=== PATIENT | male | born 1970 | race Caucasian/White ===

== ENCOUNTER 2017-04-05 16:04 | Emergency (ER) | payer OTHER ==
[2017-04-05 16:14] VITALS: BP 170/92
[2017-04-05] MEDS ORDERED: Tetan/Diph/Pertus SYR(Tdap)* 0.5 ML SYR(BOOSTRIX) use SYR IM ONE (16:20)
[2017-04-05] MEDS ORDERED: Lidocaine 2% PF * 5 ML VIAL INJ ONE (16:37)
--- NOTE | 2017-04-05 17:15 | UC ---
Laceration HPI - HPI Summary HPI Summary: Pt presents with laceration to left index finger pad. Earlier today he was using a punch box tender and the cutter fell apart and he sustained a 1cm linear laceration to the pad of his left index finger. He bandaged the wound and came to . Last tetanus was 5+ years ago. Denies hx of clotting or wound healing difficulties. Denies numbness, tingling, or decreased ROM. - History Of Current Complaint Chief Complaint: UCLaceration Stated Complaint: FINGER LAC Time Seen by Provider: 04/05/17 16:31 Hx Obtained From: Patient Laceration Location: Finger Mechanism Of Injury: Sharp Trauma Onset/Duration: Sudden Onset Severity: Mild Pain Intensity: 3 Pain Scale Used: 0-10 Numeric - Allergies/Home Medications Allergies/Adverse Reactions: Allergies Allergy/AdvReac Type Severity Reaction Status Date / Time No Known Allergies Allergy Verified 04/05/17 16:13 Home Medications: Home Medications Lisinopril [Lisinopril 2.5 MG-] 2.5 mg PO DAILY 04/05/17 [History Confirmed ] PMH/Surg Hx/FS Hx/Imm Hx Previously Healthy: Yes Cardiovascular History: Hypertension - Surgical History Surgical History: None - Social History Occupation: Employed Full-time Lives: With Family Alcohol Use: Occasionally Substance Use Type: None Smoking Status (MU): Never Smoked Tobacco Review of Systems Constitutional: Negative Skin: Other - Laceration to left index finger pad Respiratory: Negative Cardiovascular: Negative Gastrointestinal: Negative All Other Systems Reviewed And Are Negative: Yes Physical Exam Triage Information Reviewed: Yes Appearance: Well-Appearing, Well-Nourished Vital Signs: Initial Vital Signs Temp 98.4 F 04/05/17 16:10 Pulse 111 04/05/17 16:10 Resp 20 04/05/17 16:10 BP 170/92 04/05/17 16:10 Pulse Ox 100 04/05/17 16:10 Vital Signs Reviewed: Yes Respiratory: Positive: Chest non-tender, Lungs clear, Normal breath sounds Cardiovascular: Positive: RRR, No Murmur, Pulses Normal, Brisk Capillary Refill - Left index finger Musculoskeletal: Positive: Strength Intact - Left index finger, ROM Intact - Left index finger, No Edema - Left index finger Neurological: Positive: Alert, Other: - Sensations intact Left index finger Skin: Positive: Other - Superficial 1cm linear laceration to left index finger pad. There is no tendon involvement, erythema, streaking, edema, or FB. Laceration Repair - Laceration Repair 1 Description: Linear Laceration Size After Repair: Length (cm) - 1.0 Modified For Repair: No Type Injection: Local Anesthesia Used: 2.0% Lido Cleansing Completed Via Routine Prep: Yes Closure Material: Sutures - Four 6-0 nylon Closure Method: Single Layer Suture Of: Skin Suture Type: Nylon Laceration Course/Dx - Course/Dx Course Of Treatment: A time out was performed, witnessed, and signed. The area was irrigated with 50mL sterile saline. 3mL of 2% lidocaine without epi was administered and good anesthetization was achieved. An Iodine swab was used to cleanse the area. In the usual sterile fashion, four 6-0 nylon sutures were placed. The wound was bandaged with telfa and tube gauze. Pt tolerated procedure well. - Differential Dx - Laceration/Wound Differental Diagnoses: Laceration Provider Diagnoses: 1.0cm laceration to left index finger pad Discharge - Discharge Plan Condition: Stable Disposition: HOME Patient Education Materials: Care For Your Stitches (ED) Referrals: Carlos Gibson MD [Primary Care Provider] - Additional Instructions: If you develop a fever, shortness of breath, chest pain, new or worsening symptoms - please call your PCP or go to the ED. Your blood pressure was high at todays visit. Please see your primary provider within 4 weeks for recheck and re-evaluation. 1) Keep bandage clean, dry, and intact for 24 hours. May remove after that. 2) If you develops fever, chills, increased pain/bleeding, colored or thick drainage - please return to Urgent Care or call your PCP 3) Please return or see your PCP in 10-14 days to have your 4 stitches removed.
== END 2017-04-05 17:23 | disposition home or self-care (01) ==
LOC: UCEAST 16:04
DX: S61.211A Laceration without foreign body of left index finger without damage to nail, initial encounter (principal); I10 Essential (primary) hypertension; W45.8XXA Other foreign body or object entering through skin, initial encounter; Y92.9 Unspecified place or not applicable
CPT/HCPCS: 12001; 90715; 99211; G0463

== ENCOUNTER 2017-07-29 09:52 | Emergency (ER) | payer OTHER ==
[2017-07-29 10:05] VITALS: BP 186/96
[2017-07-29] MEDS ORDERED: NS 0.9% 1000 ML* 2,000 ML IV ONE (10:08)
[2017-07-29 10:53] LABS: ABS Basophils 0.1 10^3/ul (0-0.2); ABS Eosinophils 0.2 10^3/ul (0-0.6); ABS Lymphocytes 1.9 10^3/ul (1.0-4.8); ABS Monocytes 0.5 10^3/ul (0-0.8); ABS Neutrophils 4.2 10^3/ul (1.5-7.7); ABS Nucleated RBC 0 10^3/ul; Eosinophil % 3.3 % (0-6); Hematocrit 47 % (42-52); Hemoglobin 16.3 g/dl (14.0-18.0); Mean Corpuscular HGB Conc 35 g/dl (31-36); Mean Corpuscular Hemoglobin 30 pg (27-31); Mean Corpuscular Volume 86 fL (80-94); Mean Platelet Volume 9.1 um3 (7.4-10.4); Nucleated Red Blood Cells % 0; Platelet Count 150 10^3/ul (150-450); Red Cell Distribution Width 14 % (10.5-15); White Blood Count 6.9 10^3/ul (3.5-10.8)
--- NOTE | 2017-07-29 10:54 | RAD ---
HISTORY: Palpitation COMPARISONS: June 19, 2015 VIEWS: 1: frontal portable view of the chest at 8:50 AM FINDINGS: LINES AND TUBES: None. CARDIOMEDIASTINAL SILHOUETTE: The cardiomediastinal silhouette is normal for portable technique. PLEURA: The costophrenic angles are sharp. No pleural abnormalities are noted. LUNG PARENCHYMA: The lungs are clear. ABDOMEN: The upper abdomen is clear. There is no subphrenic gas. BONES AND SOFT TISSUES: No bone or soft tissue abnormalities are noted. IMPRESSION: NO ACTIVE CARDIOPULMONARY DISEASE.
--- OUTSIDE RECORDS SUMMARY | 2017-07-29 10:56 | XMS REPORT ---
:1970 External Reference #:[id number] Author Organization [facility] Address [address] [address] Phone [phone] Care Team Providers Name Role Phone Carlos Gibson MD Care Team Information Net Lead Developer Unavailable Carlos Gibson MD Primary Care Physician Unavailable Payers Type Date Identification Numbers Payment Provider Subscriber Commercial Policy Number: [id number] [employer] Joce Argueta Group Number: [id number] [address] PayID: [id number] [place] [address] Problems Date Description Provider Status Onset: 06/21/2008 Obstructive sleep apnea Pebbles Guillaume DNP, RN, Active syndrome [facility] Onset: 07/29/2017 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, RN, Active heart [facility] Family History Date Family Member(s) Problem(s) Comments Father due to Alive () Father due to Heart Disease () Father due to Diabetes () Mother alive and healthy Siblings 1 Siblings 1 sisiter no health concerns Social History Type Date Description Comments Marital Status Lives With Occupation Currently Working Cigarette Use Never Smoked Cigarettes ETOH Use Occasionally consumes alcohol Smoking Patient has never smoked Recreational Drug Use Denies Drug Use Daily Caffeine Consumes on average 4 cups of regular coffee per day Exercise Type/Frequency Exercises regularly Exercise Type/Frequency Swims 3 times a week Exercise Type/Frequency Walks 2 times a week Allergies, Adverse Reactions, Alerts Date Description Reaction Status Severity Comments 01/14/2015 NKDA active Medications Medication Date Status Form Strength Qnty SIG Indications Ordering Provider Lisinopril Active Tablets 2.5mg 1 by Unknown 015 mouth every day Hydrochlorothiazide Active Tablets 25mg 1 by Unknown 015 mouth every day Vital Signs Date Vital Result Comment 07/29/2017 Height 74 inches 6'2" Weight 213.38 lb Heart Rate 80 /min BP Systolic Sitting 166 mmHg Lue large cuff BP Diastolic Sitting 68 mmHg Lue large cuff Respiratory Rate 12 /min O2 % BldC Oximetry 97 % On Ra BMI (Body Mass Index) 27.4 kg/m2 05/11/2016 Height 74 inches 6'2" Weight 216.00 lb Heart Rate 90 /min BP Systolic Sitting 156 mmHg BP Diastolic Sitting 84 mmHg Respiratory Rate 14 /min O2 % BldC Oximetry 98 % BMI (Body Mass Index) 27.7 kg/m2 01/14/2015 Height 74 inches 6'2" Weight 213.00 lb Heart Rate 101 /min BP Systolic 160 mmHg BP Diastolic 90 mmHg Respiratory Rate 14 /min Body Temperature 98.5 F O2 % BldC Oximetry 97 % BMI (Body Mass Index) 27.3 kg/m2 Neck Circumference in inches 17 Results Description No Information Procedures Description No Information Encounters Type Date Location Provider CPT E/M Dx Office Visit 05/11/2016 [facility] 05323 G47.33 9:[facility]a [facility] ASIA FREED, NINA Office Visit 01/14/2015 [facility] Guillaume 91036 G47.33 9:00a [facility] ASIA FREED FNP-BC Plan of Care Future Appointment(s):08/04/2018 9:15 am - Pebbles Guillaume DNP, RN, NINA at [facility]07/29/2017 - Pebbles Guillaume DNP, RN, SMITA- BCG47.33 Obstructive sleep apnea (adult) (pediatric)Follow up:1 yearRecommendations:Continue PAP device, Benefitting and compliant with treatment. If you have any sleepiness while driving you MUST avoid operating a vehicle or machinery. If you have difficulty with your equipment, or need to replace your mask or hoses, please contact your homecare agency. A weight change of 20 pounds or more may have an effect on your equipment; if you are experiencing problems please call for an appointment. If you have any further questions, please call the [facility] at [phone] Cardiac arrhythmia, unspecifiedRecommendations:Discussion with patient about new onset irregular heart beat, very irregular, recent chest discomfort, soreness left bronson. He is concerned as FHx A-fib. He agrees to go to Emergency room for evaluation(EKG) and possible need for lab work. He understands that he may need to stay for observation and lab work. He declines going to ER via wheelchair. Phoned ahead and spoke to Jesus Wan, triage nurse at [facility].
[2017-07-29 11:07] LABS: INR 0.88 (0.77-1.02)
[2017-07-29 11:15] LABS: EGFR Non-African American 76.5 (>60)
[2017-07-29 11:53] LABS: Urine Appearance Clear; Urine Blood Negative (Negative); Urine Color Yellow; Urine Ketones Negative (Negative); Urine Protein Negative (Negative); Urine Specific Gravity 1.018 (1.010-1.030); Urine Urobilinogen Negative (Negative)
--- NOTE | 2017-07-29 12:04 | ED ---
Remington Padilla Thomas, scribed for Rony Wan MD on 07/29/17 at 1025 . Palpitations / Dysrhythmia - HPI Summary HPI Summary: The patient is a 47 year old referred from the sleep clinic after his vital signs showed an irregular heart rate. He complains of mild palpitations but denies feeling skipped beats. There are occasional PVCs visualized on the monitor. He does note some left shoulder pain, but reports playing baseball with his kid as well. He denies unusual pains or palpitations during his 20-30 minute periods of exercise. He appears nervous and admits to hypochondriac tendencies. The patient denies edema, sore throat, dizziness, cough, fevers, chills, chest congestion, diarrhea, constipation, and shortness of breath. He is on Lisinopril and HCTZ. - History of Current Complaint Chief Complaint: EDDysrhythmPalp Time Seen by Provider: 07/29/17 10:07 Hx Obtained From: Patient Onset/Duration: Still Present Timing: Intermittent Episodes Lasting: Severity Currently: Mild Character: Irregular Aggravating: Nothing Alleviating: Nothing Associated Signs & Symptoms: Negative - Edema, sore throat, dizziness, cough, fevers, chills, chest congestion, diarrhea, constipation, and shortness of breath - Allergy/Home Medications Allergies/Adverse Reactions: Allergies Allergy/AdvReac Type Severity Reaction Status Date / Time No Known Allergies Allergy Verified 07/29/17 10:00 PMH/Surg Hx/FS Hx/Imm Hx Endocrine/Hematology History: Denies: Hx Diabetes, Hx Thyroid Disease Cardiovascular History: Reports: Hx Hypertension - on meds Respiratory History: Reports: Hx Sleep Apnea - current CPAP user, severe RONALD Denies: Hx Asthma, Hx Chronic Obstructive Pulmonary Disease (COPD) GI History: Denies: Hx Ulcer Infectious Disease History: No Infectious Disease History: Denies: Hx Clostridium Difficile, Hx Hepatitis, Hx Human Immunodeficiency Virus (HIV), Hx of Known/Suspected MRSA, Hx Shingles, Hx Tuberculosis, Hx Known/ Suspected VRE, Hx Known/Suspected VRSA, History Other Infectious Disease, Traveled Outside the [place] in Last 30 Days - Family History Known Family History: Positive: Other - Father has A-Fib - Social History Lives: With Family Alcohol Use: Occasionally Substance Use Type: Reports: None Smoking Status (MU): Never Smoked Tobacco Review of Systems Negative: Fever, Chills Negative: Sore Throat Positive: Palpitations Negative: Shortness Of Breath, Cough, Other - chest congestion Negative: Diarrhea, Other - constipation Positive: Other - Left shoulder pain. Negative: Edema Neurological: Negative - dizziness All Other Systems Reviewed And Are Negative: Yes Physical Exam - Summary Physical Exam Summary: General: well-appearing, no pain distress Skin: warm, color reflects adequate perfusion, dry Head: normal Eyes: EOMI, ANN ENT: normal Neck: supple, nontender Respiratory: CTA, breath sounds present Cardiovascular: Occasional PVCs on the monitor. Otherwise, RRR. Abdomen: soft, nontender Bowel: present Musculoskeletal: normal, strength/ROM intact Neurological: normal, sensory/motor intact, A&O x3 Psychological: affect/mood appropriate Triage Information Reviewed: Yes Vital Signs On Initial Exam: Initial Vitals Temp Pulse Resp BP Pulse Ox 98.3 F 98 20 186/96 100 07/29/17 10:01 07/29/17 10:01 07/29/17 10:01 07/29/17 10:01 07/29/17 10:01 Vital Signs Reviewed: Yes Diagnostics - Vital Signs Vital Signs Temp Pulse Resp BP Pulse Ox 07/29/17 10:01 98.3 F 98 20 186/96 100 - Laboratory Lab Results: Lab Results 07/29/17 07/29/17 07/29/17 Range/Units 10:36 10:36 10:36 WBC (3.5-10.8) 10^3/ul RBC (4.0-5.4) 10^6/ul Hgb (14.0-18.0) g/dl Hct (42-52) % MCV (80-94) fL MCH (27-31) pg MCHC (31-36) g/dl RDW (10.5-15) % Plt Count (150-450) 10^3/ul MPV (7.4-10.4) um3 Neut % (Auto) (38-83) % Lymph % (Auto) (25-47) % [place] % (Auto) (0-7) % Eos % (Auto) (0-6) % Baso % (Auto) (0-2) % Absolute Neuts (auto) (1.5-7.7) 10^3/ul Absolute Lymphs (auto) (1.0-4.8) 10^3/ul Absolute Monos (auto) (0-0.8) 10^3/ul Absolute Eos (auto) (0-0.6) 10^3/ul Absolute Basos (auto) (0-0.2) 10^3/ul Absolute Nucleated RBC 10^3/ul Nucleated RBC % INR (Anticoag Therapy) 0.88 (0.77-1.02) APTT 30.3 (26.0-36.3) seconds D-Dimer, Quantitative < 200 (Less Than 230) ng/mL Sodium 138 L (139-145) mmol/L Potassium 3.4 L (3.5-5.0) mmol/L Chloride 101 (101-111) mmol/L Carbon Dioxide 28 (22-32) mmol/L Anion Gap 9 (2-11) mmol/L BUN 21 (6-24) mg/dL Creatinine 1.04 (0.67-1.17) mg/dL Est GFR ( Amer) 98.4 (>60) Est GFR (Non-Af Amer) 76.5 (>60) BUN/Creatinine Ratio 20.2 H (8-20) Glucose 144 H (70-100) mg/dL Lactic Acid (0.5-2.0) mmol/L Calcium 9.2 (8.6-10.3) mg/dL Magnesium 2.2 (1.9-2.7) mg/dL Total Bilirubin 0.60 (0.2-1.0) mg/dL AST 15 (13-39) U/L ALT 18 (7-52) U/L Alkaline Phosphatase 79 (34-104) U/L Total Creatine Kinase 57 (10-223) U/L CK-MB (CK-2) 1.2 (0.6-6.3) ng/mL Troponin I 0.00 (<0.04) ng/mL C-Reactive Protein 2.66 (< 5.00) mg/L B-Natriuretic Peptide 13 ( - 100) pg/mL Total Protein 7.1 (6.4-8.9) g/dL Albumin 4.4 (3.2-5.2) g/dL Globulin 2.7 (2-4) g/dL Albumin/Globulin Ratio 1.6 (1-3) Lipase 33 (11.0-82.0) U/L TSH 1.57 (0.34-5.60) mcIU/mL Urine Color Urine Appearance Urine pH (5-9) Ur Specific [place] (1.010-1.030) Urine Protein (Negative) Urine Ketones (Negative) Urine Blood (Negative) Urine Nitrate (Negative) Urine Bilirubin (Negative) Urine Urobilinogen (Negative) Ur Leukocyte Esterase (Negative) Urine Glucose (Negative) Urine Ascorbic Acid (Negative) 07/29/17 07/29/17 07/29/17 Range/Units 10:36 10:36 11:10 WBC 6.9 (3.5-10.8) 10^3/ul RBC 5.50 H (4.0-5.4) 10^6/ul Hgb 16.3 (14.0-18.0) g/dl Hct 47 (42-52) % MCV 86 (80-94) fL MCH 30 (27-31) pg MCHC 35 (31-36) g/dl RDW 14 (10.5-15) % Plt Count 150 (150-450) 10^3/ul MPV 9.1 (7.4-10.4) um3 Neut % (Auto) 60.5 (38-83) % Lymph % (Auto) 27.0 (25-47) % [place] % (Auto) 7.9 H (0-7) % Eos % (Auto) 3.3 (0-6) % Baso % (Auto) 1.3 (0-2) % Absolute Neuts (auto) 4.2 (1.5-7.7) 10^3/ul Absolute Lymphs (auto) 1.9 (1.0-4.8) 10^3/ul Absolute Monos (auto) 0.5 (0-0.8) 10^3/ul Absolute Eos (auto) 0.2 (0-0.6) 10^3/ul Absolute Basos (auto) 0.1 (0-0.2) 10^3/ul Absolute Nucleated RBC 0 10^3/ul Nucleated RBC % 0 INR (Anticoag Therapy) (0.77-1.02) APTT (26.0-36.3) seconds D-Dimer, Quantitative (Less Than 230) ng/mL Sodium (139-145) mmol/L Potassium (3.5-5.0) mmol/L Chloride (101-111) mmol/L Carbon Dioxide (22-32) mmol/L Anion Gap (2-11) mmol/L BUN (6-24) mg/dL Creatinine (0.67-1.17) mg/dL Est GFR ( Amer) (>60) Est GFR (Non-Af Amer) (>60) BUN/Creatinine Ratio (8-20) Glucose (70-100) mg/dL Lactic Acid 1.4 (0.5-2.0) mmol/L Calcium (8.6-10.3) mg/dL Magnesium (1.9-2.7) mg/dL Total Bilirubin (0.2-1.0) mg/dL AST (13-39) U/L ALT (7-52) U/L Alkaline Phosphatase (34-104) U/L Total Creatine Kinase (10-223) U/L CK-MB (CK-2) (0.6-6.3) ng/mL Troponin I (<0.04) ng/mL C-Reactive Protein (< 5.00) mg/L B-Natriuretic Peptide ( - 100) pg/mL Total Protein (6.4-8.9) g/dL Albumin (3.2-5.2) g/dL Globulin (2-4) g/dL Albumin/Globulin Ratio (1-3) Lipase (11.0-82.0) U/L TSH (0.34-5.60) mcIU/mL Urine Color Yellow Urine Appearance Clear Urine pH 5.0 (5-9) Ur Specific [place] 1.018 (1.010-1.030) Urine Protein Negative (Negative) Urine Ketones Negative (Negative) Urine Blood Negative (Negative) Urine Nitrate Negative (Negative) Urine Bilirubin Negative (Negative) Urine Urobilinogen Negative (Negative) Ur Leukocyte Esterase Negative (Negative) Urine Glucose Negative (Negative) Urine Ascorbic Acid * A (Negative) Result Diagrams: 07/29/17 10:36 07/29/17 10:36 Lab Statement: Any lab studies that have been ordered have been reviewed, and results considered in the medical decision making process. - Radiology CXR Xray Interpretation: No Acute Changes - IMPRESSION: NO ACTIVE CARDIOPULMONARY DISEASE. Dr. Wan has reviewed this report. Radiology Interpretation Completed By: Radiologist - EKG 10:07 Cardiac Rate: Tachycardia EKG Rhythm: Sinus Tachycardia - at 111 BPM Ectopy: PVCs EKG Interpretation: Minimal ST depressions in anterolateral leads. Course/Dx - Course Course Of Treatment: DISCUSSED RESULTS WITH THE PATIENT AND HIS . F/U PMD; RETURN IF WORSE. Assessment/Plan: Medications reviewed. BP noted and patient urged to follow up with primary care. - Diagnoses Provider Diagnoses: HTN (hypertension), PVCs (premature ventricular contractions), Palpitations, Hypoglycemia Discharge - Sign-Out/Discharge Documenting (check all that apply): Discharge/Admit/Transfer - Discharge Plan Condition: Stable Disposition: HOME Patient Education Materials: Hypertension (ED), Nondiabetic Hyperglycemia (ED) , Heart Palpitations (ED), Premature Ventricular Contractions (ED) Referrals: Carlos Gibson MD [Primary Care Provider] - Additional Instructions: FOLLOW UP WITH YOUR DOCTOR. RETURN TO THE EMERGENCY DEPARTMENT FOR ANY WORSENING OF YOUR CONDITION: CHEST PAIN, SHORTNESS OF BREATH, YOU FEEL ILL OR QUESTIONS OR CONCERNS. - Billing Disposition and Condition Condition: STABLE Disposition: HOME The documentation as recorded by the Remington presley Thomas accurately reflects the service I personally performed and the decisions made by me, Rony Wan MD.
== END 2017-07-29 12:21 | disposition home or self-care (01) ==
LOC: ED 09:52
DX: I10 Essential (primary) hypertension (principal); I49.3 Ventricular premature depolarization; R00.2 Palpitations; M25.512 Pain in left shoulder; E16.2 Hypoglycemia, unspecified
CPT/HCPCS: 36415; 71045; 80053; 81003; 82550; 82553; 83605; 83690; 83735; 83880; 84443; 84484; 85025; 85379; 85610; 85730; 86140; 93005; 99282